=== PATIENT | female | born 1960 | race Caucasian/White ===

== ENCOUNTER 2022-06-04 17:53 | Emergency (ER) | payer OTHER ==
[~2022-06-04] VITALS: Ht 167.6 cm; Wt 79.5 kg
[2022-06-04] MEDS ORDERED: SODIUM CHLORIDE 0.9% 1,000 ML IV ONE (18:45)
[2022-06-04 19:52] LABS: Basophils # (auto) 0 10 ^3/uL (0-0.2); Basophils % (auto) 0.1 % (0.0-2.0); Eosinophils # (auto) 0 10 ^3/uL (0-0.8); Eosinophils % (auto) 0.2 % (0.0-7.0); Hematocrit 44.8 % (36.0-46.0); Hemoglobin 15.6 g/dL (12.2-16.2); Lymphocytes # (auto) 3.8 10 ^3/uL (0.4-5.4); Mean Corpuscular Hemoglobin 30.6 pg (28.0-32.0); Mean Corpuscular Hgb Conc. 34.8 g/dL (32.0-36.0); Monocytes # (auto) 0.9 10 ^3/uL (0-1.3); Monocytes % (auto) 3.8 % (0.0-12.0); Neutrophils % (auto) 79.9 % (37.0-80.0); Red Blood Cells 5.09 10^6/uL (4.0-5.20); Red Cell Distribution Width 13.3 % (11.8-14.3); White Blood Cell 23.7 10^3/uL (4.4-10.8)
[2022-06-04 20:13] LABS: Albumin 3.4 g/dL (3.4-5.0); Calcium 8.6 mg/dL (8.5-10.1); Magnesium 2.3 mg/dL (1.6-2.6)
[2022-06-04 20:16] LABS: BUN/Creatinine Ratio 43.3
[2022-06-04 20:28] LABS: Potassium 2.6 mmol/L (3.5-5.1)
[2022-06-04] MEDS ORDERED: POTASSIUM CHL 20MEQ/100ML 100 ML IV ONE (20:45)
[2022-06-04] MEDS ORDERED: POTASSIUM CHL 20 Meq TABLET PO ONE (20:45)
[2022-06-05] MEDS ORDERED: LACTATED RINGER'S 1,000 ML IV ONE (02:00)
[2022-06-05] MEDS ORDERED: PIPERACILLIN-TAZOB 3.375GM 100 ML IV ONE (02:00)
[2022-06-05 07:18] LABS: Urine Blood Negative /uL (Negative); Urine Specific Gravity 1.026 (1.001-1.035)
[2022-06-05 08:00] LABS: Urine Bacteria None Seen /hpf (None Seen)
[2022-06-05 08:07] LABS: Urine Blood Negative /uL (Negative); Urine Specific Gravity 1.026 (1.001-1.035)
[2022-06-05 08:12] LABS: Urine WBC 0-2 /hpf (0 - 5)
[2022-06-05 08:13] LABS: Urine WBC Clumps NONE SEEN /hpf (None Seen)
[2022-06-05 08:14] LABS: Urine Ca Carbonate Crystal NONE SEEN /hpf (None Seen)
[2022-06-05 08:17] LABS: Urine Amorphous Crystal NONE SEEN /hpf (None Seen); Urine Budding Yeast NONESEEN /hpf (None Seen); Urine Mucus NONE SEEN (None Seen); Urine Sperm NONE SEEN /hpf (None Seen)
[2022-06-05] MEDS ORDERED: POTASSIUM EFFERVESENT TAB 25 MEQ PO ONE (08:45)
[2022-06-05] MEDS ORDERED: ROSU20TA14 PO (09:34)
[2022-06-05] MEDS ORDERED: MONT-8 PO (09:34)
[2022-06-05] MEDS ORDERED: TIOT1AER2 IN (09:34)
[2022-06-05] MEDS ORDERED: CLON0.5T3 PO (09:34)
[2022-06-05] MEDS ORDERED: TIOTCAP IN (09:34)
[2022-06-05] MEDS ORDERED: LOSA-69 PO (09:34)
[2022-06-05] MEDS ORDERED: AML5T PO (09:34)
[2022-06-05] MEDS ORDERED: POTA1TAB61 PO (09:34)
[2022-06-05] MEDS ORDERED: CHLO25TA2 PO (09:34)
[2022-06-05] MEDS ORDERED: METO1TAB9 PO (09:34)
[2022-06-05] MEDS ORDERED: FLUT1AER7 IN (09:34)
[2022-06-05] MEDS ORDERED: PANT1INJ3 IV (09:34)
[2022-06-05 12:12] VITALS: BP 137/57
[2022-06-05] MEDS ORDERED: ONDANSETRON HCL 4 MG/2 ML VIAL IV ONE (12:45)
== END 2022-06-05 11:31 | disposition short-term general hospital (02) ==
LOC: EDBD 17:53 → ER 17:53
DX: D72.829 Elevated white blood cell count, unspecified (principal); E87.6 Hypokalemia; J44.9 Chronic obstructive pulmonary disease, unspecified; E78.5 Hyperlipidemia, unspecified; I10 Essential (primary) hypertension; Z20.822 Contact with and (suspected) exposure to COVID-19
CPT/HCPCS: 36415; 71045; 74176; 80053; 81001; 81003; 83605; 83735; 83880; 84132; 84484; 85025; 87040; 87426; 93005; 96361; 96365; 96366; 96367; 96375; 99285; J2405; J2543; J3480; J7030